=== PATIENT | male | born 1990 | race Caucasian/White ===

== ENCOUNTER 2023-07-30 09:53 | Emergency (ER) | payer SELFPAY ==
[2023-07-30] MEDS ORDERED: Ketorolac 30 MG/ML SDV IM ONE (10:02)
== END 2023-07-30 11:08 | disposition home or self-care (01) ==
LOC: KA.ED 09:53
DX: M54.16 Radiculopathy, lumbar region (principal); F17.210 Nicotine dependence, cigarettes, uncomplicated; W18.40XA Slipping, tripping and stumbling without falling, unspecified, initial encounter; Y99.0 Civilian activity done for income or pay
CPT/HCPCS: 72110; 96372; 99283; 99284; J1885